=== PATIENT | female | born 1975 | race Two or more races ===

== ENCOUNTER 2019-02-03 04:52 | Emergency (ER) | payer BC ==
--- NOTE | 2019-02-03 04:57 | PDOC ---
History of Present Illness - General Stated Complaint: SHORTNESS OF BREATH, SHAKING HANDS Time Seen by Provider: 02/03/19 04:56 - History of Present Illness Initial Comments: 43yo F smoker presenting with chest pain, R. arm tingling/numbness/tremor, diaphoresis, and shortness of breath that started acutely while she was watching television at 10pm. Patient has had similar episodes like this which she associates with anxiety. The chest pain is located midsternally and to the right chest. It is non-radiating and described as "pressure" and "sharp." The pain lasts for a couple seconds at a time. She has had chest pain about once a week for a long time, but this pain is more severe. Nothing makes it better or worse. No nausea or vomiting. Denies personal history of cardiac problems. Father had cardiac bypass procedure in his 50s. No hemoptysis, no recent surgical history, no recent immobilization, no hormone use, no history of DVT or PE. Patient is currently menstruating. No fevers or abdominal pain. PCP: Dr. Riggins Past History - Past Medical History Allergies/Adverse Reactions: Allergies Allergy/AdvReac Type Severity Reaction Status Date / Time Penicillins Allergy Verified 02/03/19 05:24 Home Medications: Ambulatory Orders Diphenhydramine [Benadryl -] 50 mg PO HS #20 capsule 12/12/14 EPINEPHrine (EPI-PEN 0.3MG) [Epipen 0.3MG -] 0.3 mg IM ASDIR #2 pens 12/12/14 Famotidine [Pepcid] 40 mg PO DAILY #10 tablet 12/12/14 predniSONE [Deltasone -] 10 mg PO DAILY #26 tablet 12/12/14 - Suicide/Smoking/Psychosocial Hx Smoking History: Current every day smoker Have you smoked in the past 12 months: Yes 'Breaking Loose' booklet given: 12/10/14 Hx Alcohol Use: Yes (Once monthly.) Drug/Substance Use Hx: No Substance Use Type: None Hx Substance Use Treatment: No Review of Systems - Review of Systems Comments:: Constitutional: no fever, +diaphoresis HEENT: no throat pain, no dysphagia Cardiovascular: +chest pain, no palpitations Respiratory: no cough, +shortness of breath Gastrointestinal: no abdominal pain, no nausea Genitourinary: no dysuria, no frequency Musculoskeletal: no myalgia, no arthralgia Skin: no rash, no itching Neurologic: no headache, no weakness *Physical Exam - Physical Exam Comments: General: Awake, alert, and fully oriented, in no acute distress Head: No signs of trauma Eyes: EOMI, sclera anicteric ENT: Moist mucus membranes Neck: Normal ROM, supple Lungs: Lungs clear, Normal breath sounds Cardio: Regular rhythm, S1 and S2 present Abdomen: Soft, nontender. No guarding, no rebound, no masses Extremities: Normal range of motion, Distal pulses present, no calf tenderness SKIN: Warm, Dry, normal turgor Neurologic: Cranial nerves II through XII grossly intact. Normal speech ED Treatment Course - LABORATORY CBC & Chemistry Diagram: 02/03/19 05:40 02/03/19 05:40 Medical Decision Making - Medical Decision Making 43yo F smoker presenting with chest pain, R. arm tingling/numbness/tremor, diaphoresis, and shortness of breath that started acutely while she was watching television at 10pm. DDX including but not limited to ACS, PE, MSK, Anxiety HEART score is at least 1 for risk factors (smoker, family history) PERC 1, WELLS 1.5 VS notable for tachycardia 1L Fluids Labs, EKG, CXR 02/03/19 04:56 EKG: rate 112, QTc 488, sinus tachycardia 02/03/19 06:20 D-Dimer>1000 Decision made to order chest CTA to assess for PE 02/03/19 06:31 Patient signed out to Dr. Camacho and day team 02/03/19 07:16 *DC/Admit/Observation/Transfer Diagnosis at time of Disposition: Chest pain Qualifiers: Chest pain type: unspecified Qualified Code(s): R07.9 - Chest pain, unspecified - Discharge Dispostion Condition at time of disposition: Fair - Referrals - Patient Instructions Printed Discharge Instructions: DI for Atypical Chest Pain Additional Instructions: You came into the ED for chest pain, shortness of breath, dizziness, sweating, and shakiness. We performed blood work, an EKG, and a CT of your chest which were within normal limits. Follow-up with your primary care physician in the next 2-3 days to discuss this ED visit and to further evaluate your symptoms. Call and make an appointment. Your workup is not complete until you do so. Call for emergency medicine services or go to the emergency room right away if you have symptoms of a heart attack, including: Chest pain, which may feel like a crushing weight A sense of fullness, squeezing, or pressure in the chest Rapid, irregular heartbeat Pain, tingling or numbness in the left shoulder and arm, the neck or jaw, or the right arm Sweating Nausea or vomiting Lightheadedness, weakness, or fainting Shortness of breath If you think you have an emergency, call for medical help right away. - Post Discharge Activity Forms/Work/School Notes: Back to Work
--- NOTE | 2019-02-03 05:11 | PDOC ---
Attending Attestation - Resident Resident Name: Thea Callaway - ED Attending Attestation I have performed the following: I have examined & evaluated the patient, The case was reviewed & discussed with the resident, I agree w/resident's findings & plan - HPI HPI: 02/03/19 06:41 43-year-old female with sudden onset of chest pain and palpitations while watching TV. Patient states symptoms are now resolved. - Physicial Exam PE: 02/03/19 06:44 agree with resident exam - Medical Decision Making 02/03/19 06:45 43-year-old female with chest pain/ shortness of breath D-dimer markedly elevated Plan for CTA of the chest, will sign case out to oncoming shift
[2019-02-03] MEDS ORDERED: SODIUM CHLORIDE 1,000 ML IV STA (05:26)
[2019-02-03 05:27] VITALS: TEMP 98.3; BMI 33.8
[2019-02-03 06:07] LABS: INR 1.09 (0.83-1.09); PROTHROMBIN TIME (PATIENT) 12.9 SEC (9.7-13.0)
[2019-02-03 06:23] LABS: ALBUMIN 4.3 g/dl (3.4-5.0); BILIRUBIN,TOTAL 0.4 mg/dL (0.2-1); BLOOD UREA NITROGEN 12.2 mg/dL (7-18); CALCIUM 9.3 mg/dL (8.5-10.1); CREATININE 0.8 mg/dL (0.55-1.3); POTASSIUM 4.4 mmol/L (3.5-5.1); TOT PROT 7.4 g/dl (6.4-8.2)
[2019-02-03 07:06] VITALS: BP 142/99
[2019-02-03 07:09] LABS: BASO % 0.4 % (0-2.0); EOS % 0.5 % (0-4.5); HEMATOCRIT 41.7 % (32.4-45.2); HEMOGLOBIN 13.9 GM/dL (10.7-15.3); LYMPH % 23.5 % (8-40); MCH 30.3 pg (25.7-33.7); MCHC 33.3 g/dl (32.0-36.0); MEAN CELL VOLUME 91.1 fl (80-96); MEAN PLT VOLUME 8.6 fl (7.5-11.1); MONO % 4.4 % (3.8-10.2); NEUT % 71.2 % (42.8-82.8); PLATELET COUNT 328 K/MM3 (134-434); RBC 4.58 M/mm3 (3.60-5.2); RDW 14.5 % (11.6-15.6)
--- NOTE | 2019-02-03 07:33 | PDOC ---
*Physical Exam - Vital Signs Last Vital Signs Temp Pulse Resp BP Pulse Ox 98.3 F 115 H 20 142/99 99 02/03/19 04:52 02/03/19 04:52 02/03/19 07:03 02/03/19 07:03 02/03/19 07:03 ED Treatment Course - LABORATORY CBC & Chemistry Diagram: 02/03/19 05:40 02/03/19 05:40 - ADDITIONAL ORDERS Additional order review: Laboratory Results 02/03/19 02/03/19 02/03/19 05:40 05:40 05:40 PT with INR INR D-Dimer 1053 H Sodium 139 Potassium 4.4 Chloride 106 Carbon Dioxide 27 Anion Gap 5 L BUN 12.2 Creatinine 0.8 Est GFR (CKD-EPI)AfAm 104.65 Est GFR (CKD-EPI)NonAf 90.30 Random Glucose 110 H Calcium 9.3 Total Bilirubin 0.4 AST 13 L ALT 17 Alkaline Phosphatase 107 Creatine Kinase Troponin I Total Protein 7.4 Albumin 4.3 Urine HCG, Qual Negative 02/03/19 02/03/19 05:40 05:40 PT with INR 12.90 INR 1.09 D-Dimer Sodium Potassium Chloride Carbon Dioxide Anion Gap BUN Creatinine Est GFR (CKD-EPI)AfAm Est GFR (CKD-EPI)NonAf Random Glucose Calcium Total Bilirubin AST ALT Alkaline Phosphatase Creatine Kinase 105 Troponin I < 0.02 Total Protein Albumin Urine HCG, Qual 02/03/19 05:40 RBC 4.58 MCV 91.1 MCHC 33.3 RDW 14.5 MPV 8.6 Neutrophils % 71.2 D Lymphocytes % 23.5 D Monocytes % 4.4 D Eosinophils % 0.5 D Basophils % 0.4 D - Medications Given in the ED: ED Medications Discontinued Medications Generic Name Dose Route Start Last Admin Trade Name Freq PRN Reason Stop Dose Admin Sodium Chloride 1,000 mls @ 1,000 mls/hr 02/03/19 05:26 02/03/19 05:50 Normal Saline - IV 02/03/19 06:25 1,000 mls/hr ASDIR STA Administration Progress Note - Progress Note Progress Note: Received sign out on patient by Dr. Callaway. Patient pending CTA for PE workup. 43 y/o F with onset of dyspnea, tachycardia, shortness of breath, chest pain last night 2200, which patient attributed to "anxiety". Symptomatic improvement , negative troponin, sinus tach on ECG. D-dimer returned >1000, pending CTA. Dispo pending CTA, likely d/c home if CTA normal and patient has improvement of vital signs. Medical Decision Making - Medical Decision Making Sign out received by Dr. Callaway. Johnny pending CTA results. 02/03/19 09:38 CTA negative for PE or acute process, noted multiple fatty cysts in breast tissue. Counseled patient on follow up - she is already aware and had mammogram previously, thought to be secondary to breast reduction. Plan to discharge home with close PCP follow up. *DC/Admit/Observation/Transfer Diagnosis at time of Disposition: Shortness of breath Chest pain Qualifiers: Chest pain type: unspecified Qualified Code(s): R07.9 - Chest pain, unspecified - Discharge Dispostion Disposition: HOME Condition at time of disposition: Good Decision to Admit order: No - Referrals - Patient Instructions Printed Discharge Instructions: DI for Atypical Chest Pain Additional Instructions: You came into the ED for chest pain, shortness of breath, dizziness, sweating, and shakiness. We performed blood work, an EKG, and a CT of your chest which were within normal limits. Follow-up with your primary care physician in the next 2-3 days to discuss this ED visit and to further evaluate your symptoms. Call and make an appointment. Your workup is not complete until you do so. Call for emergency medicine services or go to the emergency room right away if you have symptoms of a heart attack, including: Chest pain, which may feel like a crushing weight A sense of fullness, squeezing, or pressure in the chest Rapid, irregular heartbeat Pain, tingling or numbness in the left shoulder and arm, the neck or jaw, or the right arm Sweating Nausea or vomiting Lightheadedness, weakness, or fainting Shortness of breath If you think you have an emergency, call for medical help right away. - Post Discharge Activity Forms/Work/School Notes: Back to Work
[2019-02-03 07:51] VITALS: PULSE 85
--- NOTE | 2019-02-04 12:57 | EKG ---
Test Reason : Blood Pressure : / mmHG Vent. Rate : 112 BPM Atrial Rate : 112 BPM P-R Int : 144 ms QRS Dur : 086 ms QT Int : 358 ms P-R-T Axes : 054 026 068 degrees QTc Int : 488 ms SINUS TACHYCARDIA POSSIBLE LEFT ATRIAL ENLARGEMENT WHEN COMPARED WITH ECG OF 09-DEC-2014 15:25, NO SIGNIFICANT CHANGE WAS FOUND Confirmed by MARIANNA HENRY MD ([id number]) on 02/04/2019 12:56:36 PM Referred By: Confirmed By:MARIANNA HENRY MD
== END 2019-02-03 09:45 | disposition home or self-care (01) ==
LOC: JER 04:52
PROC: 3E0337Z Introduction of Electrolytic and Water Balance Substance into Peripheral Vein, Percutaneous Approach (ICD-10-PCS; principal; 2019-02-03)
DX: R07.9 Chest pain, unspecified (principal)
CPT/HCPCS: 36415; 71045-TC-FY; 71275-TC; 80053; 82550; 84484; 84703; 85025; 85379; 85610; 93005; 93010; 99282-25; J7030

== ENCOUNTER 2021-08-14 04:10 | Day surgery (SDC) | payer BC ==
[~2021-08-14 04:10] MED LIST: COCAINE HCL 4% TOPICAL SOLUTION 4 ML BOTTLE TP ONE
[2021-08-14] MEDS ORDERED: LIDOCAINE 1%/EPI 1:100000 (20 ML MULTI DOSE VIAL) ONE (12:30)
[2021-08-14] MEDS ORDERED: COCAINE HCL 4% TOPICAL SOLUTION 4 ML BOTTLE TP ONE ×2 (12:32→13:50)
[2021-08-14] MEDS ORDERED: PROPOFOL 20 ML ONE (12:53)
[2021-08-14] MEDS ORDERED: SUCCINYLCHOLINE CHLORIDE 200 MG/10 ML SYRINGE ONE (12:53)
[2021-08-14] MEDS ORDERED: ROCURONIUM BROMIDE 50 MG/5 ML SYRINGE ONE (12:53)
[2021-08-14] MEDS ORDERED: MIDAZOLAM HCL 2 MG/2 ML SINGLE DOSE VIAL ONE (12:53)
[2021-08-14] MEDS ORDERED: oxyCODONE HCL 5 MG TABLET PO PRN (13:54)
[2021-08-14] MEDS ORDERED: ONDANSETRON 4 MG/2 ML VIAL IVPUSH PRN (13:54)
[2021-08-14] MEDS ORDERED: LACTATED RINGERS SOLUTION 1,000 ML IV SCH (14:00)
[2021-08-14] MEDS ORDERED: GLYCOPYRROLATE 0.2 MG/1 ML VIAL ONE (14:23)
[2021-08-14] MEDS ORDERED: NEOSTIGMINE METHYLSULFATE 0.5 MG/1 ML - 10 ML MDV ONE (14:23)
[2021-08-14] MEDS ORDERED: ONDANSETRON 4 MG/2 ML VIAL ONE (15:28)
[2021-08-14 17:52] VITALS: BP 130/79; PULSE 90; TEMP 97.4
== END 2021-08-14 17:52 | disposition home or self-care (01) ==
LOC: JASU-SURG 04:10
PROVIDERS: ATTEND Otolaryngology
PROC: 0CBT8ZX Excision of Right Vocal Cord, Via Natural or Artificial Opening Endoscopic, Diagnostic (ICD-10-PCS; 2021-08-14)
PROC: 0CBV8ZX Excision of Left Vocal Cord, Via Natural or Artificial Opening Endoscopic, Diagnostic (ICD-10-PCS; principal; 2021-08-14 12:00)
DX: J38.1 Polyp of vocal cord and larynx (principal); G24.9 Dystonia, unspecified
CPT/HCPCS: 81025; 88305-TC; 94760